=== PATIENT | male | born 1970 | race Caucasian/White ===

== ENCOUNTER 2022-01-23 00:17 | Emergency (ER) | payer OTHER, SELFPAY ==
[2022-01-23] VITALS (12 sets, daily range): BP systolic 143–192; BP diastolic 94–114; PULSE 63–77; RESP 10–22; TEMP 36.8; O2SAT 95–99
--- NOTE | ~2022-01-23 | XR_ITS ---
EXAMINATION: XR chest 2V DATE: 01/23/2022 00:40 INDICATION: Chest pain. TECHNIQUE: Frontal and lateral views of the chest were obtained. COMPARISON: None. FINDINGS: There is mild atelectasis in right lower lung zone. No pleural effusion or pneumothorax. Th e heart size is normal. IMPRESSION: 1. Mild atelectasis in right lower lung zone. Reviewed, dictated and finalized at location A.
--- NOTE | 2022-01-23 00:19 | ECG_ITS ---
Measurements Intervals [place] Rate: 77 P: 35 ID: [id number] QRS: -27 QRSD: 95 T: 70 QT: 399 QTc: 452 Interpretive Statements SINUS RHYTHM DELAYED PRECORDIAL R/S TRANSITION BORDERLINE T WAVE ABNORMALITY- ANT/HIGH LAT LEADS BORDERLINE ECG NO PREVIOUS ECG AVAILABLE FOR COMPARISON Electronically Signed On 01-23-2022 6:42:31 CDT by Jesus Weathers D.O.
[2022-01-23 00:37] LABS: Basophils Absolute Auto 0.1 K/mm3 (0.0-0.1); Basophils Percent Auto 1.1 % (0.2-1.2); Eosinophils Absolute Auto 0.8 K/mm3 (0-0.3); Eosinophils Percent Auto 7.6 % (0-4.4); Hematocrit 49.4 % (42.0-52.0); Hemoglobin 17.3 g/dL (14.0-18.0); Immature Granulocyte Absolute 0.07 K/mm3 (0.00-0.031); Immature Granulocyte Percent A 0.7 % (0-0.5); Lymphocytes Absolute Auto 2.47 K/mm3 (0.9-3.2); Lymphocytes Percent Auto 23.8 % (18.3-44.2); Mean Corpuscular Hemoglobin 30.5 pg (26-34); Mean Corpuscular Volume 87.1 fl (80-100); Mean Platelet Volume 9.8 fl (7.4-10.4); Monocytes Absolute Auto 1.2 K/mm3 (0.1-0.6); Monocytes Percent Auto 11.4 % (2.6-8.5); Neutrophils Absolute Auto 5.8 K/mm3 (1.3-6.7); Neutrophils Percent Auto 55.4 % (45.5-73.1); Platelet Count Result 255 k/mm3 (150-375); Red Blood Count 5.67 M/mm3 (4.6-6.20); Red Cell Distribution Width 12.4 % (11.5-14.5); White Blood Count 10.4 K/mm3 (4.5-10.0)
[2022-01-23 00:49] LABS: Alanine Aminotransferase 66 U/L (6-50); Alkaline Phosphatase 115 U/L (38-126); Anion Gap 17 mmol/L (8-16); Aspartate Amino Transferase 50 U/L (17-59); Blood Urea Nitrogen 15 mg/dL (9-20); Calcium 8.9 mg/dL (8.4-10.2); Carbon Dioxide 22 mmol/L (22-30); Chloride 98 mmol/L (98-107); Estimated CRCL calculation 95 ml/min; Estimated Glomerular Filt Rate > 60; Glucose 111 mg/dL (65-110); Lipase 115 U/L (23-300); Sodium 137 mmol/L (137-145)
[2022-01-23 00:51] LABS: Prothrombin Time 12.4 Seconds (11.1-14.7)
[2022-01-23 00:52] LABS: Partial Thromboplastin Time 25.9 SECONDS (22.3-36.8)
[2022-01-23 01:00] LABS: Troponin I < 0.012 ng/mL (0.000-0.034)
--- NOTE | 2022-01-23 01:22 | ED.CHESTPAIN ---
HPI - Chest Pain General Chief Complaint: Chest Pain Stated Complaint: High BP, Chest pain Time Seen by Provider: 01/23/22 01:10 History of Present Illness HPI narrative: This is a 51-year-old male with past medical history of hypertension, who presents to the emergency department complaining of chest pain. He states today he noted a 2 out of 10 twinge pain that began approximately 3 hours before arrival lasting about 1 hour. The pain resolved on its own then recurred about 30 minutes prior to arrival. Patient notes he has had intermittent episodes like please for the past 3 weeks, typically exacerbated by deep breathing and relieved with walking. He denies nausea, vomiting, abdominal pain, shortness of breath. Related Data Allergies Allergy/AdvReac Type Severity Reaction Status Date / Time No Known Allergies Allergy Verified 01/23/22 00:28 Review of Systems Review of Systems: CONSTITUTIONAL: Denies fever, chills, or sweats. EYES: Denies visual changes, redness, or discharge. ENT: Denies rhinorrhea, congestion, sore throat, or otalgia. CARDIOVASCULAR: +chest pain, Denies palpitations, or edema. RESPIRATORY: Denies cough or dyspnea. GASTROINTESTINAL: Denies abdominal pain, nausea, vomiting, or diarrhea. GENITOURINARY: Denies dysuria or hematuria. SKIN: Denies rash or itching. MUSCULOSKELETAL: Denies back pain, joint pain, or myalgia. NEUROLOGIC: Denies headache, numbness, dizziness, or weakness. PSYCHIATRIC: Denies anxiety or depression. Exam Narrative: GENERAL: Well-appearing, well-nourished, and in no acute distress. HEAD: Normocephalic, atraumatic. EYES: PERRLA and EOMI. ENT: Nares clear, no rhinorrhea or epistaxis. Mucous membranes moist. Oropharynx without tonsillar hypertrophy exudate or other lesions. NECK: Supple. No adenopathy or masses. No carotid bruits or JVD CHEST: Clear to auscultation. No respiratory distress. No wheezes rales or rhonchi, no pain to palpation of the chest HEART: Regular rate and rhythm. No murmur heard. Normal peripheral pulses. ABDOMEN: Soft, nontender, nondistended, normal active bowel sounds. EXTREMITIES: Normal range of motion. No edema. SKIN: Warm, dry, no rash. NEURO: No focal deficits. Alert and oriented x3. PSYCH: Normal mood and affect. Course Course Emergency Course: 04:30 - Troponins negative x2. EKG negative for ischemia. Chest x-ray unremarkable. Patient's blood pressure improved with now medical intervention. Heart score 3. Discussed findings with the patient and recommendation for follow-up in the outpatient setting. The patient voiced understanding is comfortable with the plan. All questions answered to his satisfaction. Vital Signs Vital signs: Vital Signs Temperature 98.2 F 01/23/22 00:23 Pulse Rate 77 01/23/22 00:23 Respiratory Rate 20 01/23/22 00:23 Blood Pressure 173/114 H 01/23/22 00:23 Pulse Oximetry 95 01/23/22 00:23 Oxygen Delivery Room Air 01/23/22 00:23 Temperature 98.2 F 01/23/22 00:23 Pulse Rate 73 01/23/22 04:52 Respiratory Rate 20 01/23/22 04:52 Blood Pressure 143/98 H 01/23/22 04:52 Pulse Oximetry 99 01/23/22 04:52 Oxygen Delivery Room Air 01/23/22 00:23 MDM - Chest Pain MDM Narrative Medical decision making narrative: Plan: Labs, imaging, ECG, troponin, reassess Differential Diagnosis Differential diagnosis: Likely other (ACS, pneumothorax, costochondritis, metabolic abnormality, hypertension, other) Lab Data Result diagrams: 01/23/22 00:30 01/23/22 00:30 Labs: Lab Results 01/23/22 01/23/22 01/23/22 Range/Units 00:30 00:30 00:30 WBC 10.4 H (4.5-10.0) K/mm3 RBC 5.67 (4.6-6.20) M/mm3 Hgb 17.3 (14.0-18.0) g/dL Hct 49.4 (42.0-52.0) % MCV 87.1 (80-100) fl MCH 30.5 (26-34) pg MCHC 35.0 (32-36) g/dl RDW 12.4 (11.5-14.5) % Plt Count 255 (150-375) k/mm3 MPV 9.8 (7.4-10.4) fl Immature Gran % (Auto) 0.7 H (
[2022-01-23] MEDS: ASPIRIN 81 MG CHEWABLE TABLET 324 MG PO (01:52)
[2022-01-23 03:42] LABS: Troponin I < 0.012 ng/mL (0.000-0.034)
== END 2022-01-23 04:40 | disposition home or self-care (01) ==
PROVIDERS: Physician Assistant; Emergency Provider Preventive Medicine Aerospace Medicine
DX: R07.89 Other chest pain (principal); I10 Essential (primary) hypertension; R94.31 Abnormal electrocardiogram [ECG] [EKG]
CPT/HCPCS: 36415; 71046; 80053; 83690; 84484; 85025; 85610; 85730; 93005; 99284; A9270